=== PATIENT | female | born 2000 | race Caucasian/White ===

== ENCOUNTER 2021-10-06 12:19 | Emergency (ER) | payer SELFPAY ==
[2021-10-06] MEDS ORDERED: OMNICEF 300 MG300 MG PO (13:25)
[2021-10-06] MEDS ORDERED: PYRIDIUM100 MG PO (13:25)
== END 2021-10-06 13:34 | disposition home or self-care (01) ==
LOC: ER1 12:19
DX: N39.0 Urinary tract infection, site not specified (principal)
CPT/HCPCS: 81001; 84703; 87077; 87086; 87186; 99284